=== PATIENT | male | born 1975 | race Asian ===

== ENCOUNTER 2021-01-04 19:34 | Emergency (ER) | payer OTHER ==
[~2021-01-04] VITALS: Ht 175.3 cm; Wt 79.4 kg
[2021-01-04] MEDS ORDERED: IV NORMAL SALINE 1000 ML BAG IV ONE (19:45)
[2021-01-04] MEDS ORDERED: KETOROLAC TROMETHAMINE 15 MG INJ IVP ONE (19:45)
[2021-01-04 19:48] LABS: *BILIRUBIN,URIN NEGATIVE (NEGATIVE); *BLOOD, URINE 2+ (NEGATIVE); *CLARITY,URINE CLEAR (CLEAR); *COLOR,URINE YELLOW (YELLOW); *KETONES,URINE NEGATIVE (NEGATIVE); *UROBILINOGEN,URINE 0.2 E.U./dl (NORMAL); LEUKOCYTE ESTERASE ,URINE NEGATIVE (NEGATIVE); NITRITE, URINE NEGATIVE (NEGATIVE); PH,URINE 6.5 (5.0-8.0); UGLUCOSE NEGATIVE (NEGATIVE)
[2021-01-04] MEDS ORDERED: KETOROLAC TROMETHAMINE 15 MG INJ ONE (19:48)
--- NOTE | 2021-01-04 20:00 | NUR ---
Pt. A&Ox4, breathing normal RA, speech coherent, ambulatory, c/o lower back pain, reports first time, feel like kidney stone. His father had chronic kidney stone per pt statement. Comfort & safety checked. IV access on L hand by the collections professional.
[2021-01-04 20:04] LABS: WBC,URINE 0-3 /HPF (0-3)
--- NOTE | 2021-01-04 20:07 | NUR ---
Pt. taken for CT study by a transporter.
[2021-01-04 20:10] LABS: BASOPHILS # (AUTO) 0.1 K/uL (0.0-8.0); EOSINOPHILS # (AUTO) 0.3 K/uL (0.0-0.7); EOSINOPHILS % (AUTO) 4.1 % (0.0-7.0); HEMATOCRIT 46.8 % (36.7-47.1); HEMOGLOBIN 15.8 g/dL (12.5-16.3); LYMPHOCYTES # (AUTO) 2.7 K/uL (20.0-40.0); LYMPHOCYTES % (AUTO) 37.1 % (20.5-51.5); MEAN CORPUSCULAR HEMOGLOBIN 29.1 uug (23.8-33.4); MEAN CORPUSCULAR HGB CONC 34 g/dL (32.5-36.3); MEAN CORPUSCULAR VOLUME 86.2 fL (73.0-96.2); MONOCYTES # (AUTO) 0.5 K/uL (2.0-10.0); MONOCYTES % (AUTO) 6.4 % (0.0-11.0); NEUTROPHILS # (AUTO) 3.7 K/uL (1.8-8.9); NEUTROPHILS % (AUTO) 51.4 % (38.5-71.5); PLATELET COUNT (AUTO) 370 K/uL (152-348); RED BLOOD CELL COUNT(AUTO) 5.42 MIL/uL (4.06-5.63); WHITE BLOOD COUNT (AUTO) 7.2 K/uL (3.6-10.2)
[2021-01-04 20:14] LABS: POTASSIUM 3.1 mmol/L (3.5-5.1)
[2021-01-04 20:20] LABS: BILIRUBIN,TOTAL 0.5 mg/dL (0.2-1.0); TOTAL PROTEIN, SERUM 7.8 g/dL (6.4-8.2)
--- NOTE | 2021-01-04 20:20 | NUR ---
Pt returned from CT room, sitting calmly, reports pain is gone due to the ED medication treatment.
[2021-01-04] MEDS ORDERED: POTASSIUM BICARBONATE/CIT AC 25 MEQ TABLET.EFF PO ONE (20:30)
[2021-01-04] MEDS ORDERED: POTASSIUM BICARBONATE/CIT AC 25 MEQ TABLET.EFF ONE (20:39)
[2021-01-04] MEDS ORDERED: TAMS-3 PO (20:48)
--- NOTE | 2021-01-04 21:02 | NUR ---
Discharge instruction given, Rx educated, understanding verbalized by patient. pt. ambulated freely out of the ED, family member is on the way.
[2021-01-04 21:03] VITALS: BP 148/98
== END 2021-01-04 21:04 | disposition home or self-care (01) ==
LOC: ER 19:35
DX: R10.9 Unspecified abdominal pain (principal); R31.9 Hematuria, unspecified; N13.2 Hydronephrosis with renal and ureteral calculous obstruction; E87.6 Hypokalemia; I10 Essential (primary) hypertension; K80.20 Calculus of gallbladder without cholecystitis without obstruction
CPT/HCPCS: 36415; 74176; 80053; 81001; 85025; 96361; 96374; 99284; J1885; A4663; J7030